=== PATIENT | male | born 1960 | race Caucasian/White ===

== ENCOUNTER 2017-11-02 16:37 | Emergency (ER) | payer OTHER ==
[~2017-11-02] VITALS: Ht 154.9 cm; Wt 100.0 kg
[2017-11-02] MEDS ORDERED: acetaminophen 325mg tablet PO ONE (20:00)
[2017-11-02] MEDS ORDERED: ketorolac trometh inj. 60 MG/2 ML VIAL IM ONE (20:00)
[2017-11-02] MEDS ORDERED: PER10325T PO (20:00)
[2017-11-02] MEDS ORDERED: ATOR20TA PO (20:01)
[2017-11-02] MEDS ORDERED: GLYB5TAB7 PO (20:01)
[2017-11-02] MEDS ORDERED: LISI-600 PO (20:01)
[2017-11-02 20:52] LABS: BASOPHILS % (AUTO) 0.2 % (0-1); EOSINOPHILS # (AUTO) 0.1 X10'3 (0-0.9); EOSINOPHILS % (AUTO) 1.4 % (0-6); HEMATOCRIT 44.4 % (42.0-52.0); HEMOGLOBIN 15.2 g/dl (14.0-17.9); LYMPHOCYTES # (AUTO) 2.4 X10'3 (1.1-4.8); LYMPHOCYTES % (AUTO) 21.9 % (21-51); MEAN CORPUSCULAR HEMOGLOBIN 29.6 PG (27.0-31.0); MEAN CORPUSCULAR HGB CONC 34.3 % (33.0-36.5); MEAN CORPUSCULAR VOLUME 86.2 FL (78-98); MEAN PLATELET VOLUME 7.5 FL (7.4-10.4); MONOCYTES # (AUTO) 0.7 X10'3 (0-0.9); MONOCYTES % (AUTO) 6.2 % (2-12); NEUTROPHILS # (AUTO) 7.6 X10'3 (1.8-7.7); NEUTROPHILS % (AUTO) 70.3 % (42-75); PLATELET COUNT 294 X10'3 (140-440); RED BLOOD COUNT 5.15 X10'6 (4.70-6.10); RED CELL DISTRIBUTION WIDTH 14.1 % (11.5-14.5); WHITE BLOOD COUNT 10.9 X10'3 (4.5-11.0)
[2017-11-02 21:16] LABS: ALANINE AMINOTRANSFERASE 43 U/L (12-78); ALBUMIN 4.1 G/DL (3.4-5.0); ALBUMIN/GLOBULIN RATIO 1.1 (1.1-1.5); ALKALINE PHOSPHATASE 84 IU/L (46-116); ANION GAP 13 (8-16); ASPARTATE AMINO TRANSFERASE 19 U/L (10-37); BILIRUBIN,TOTAL 0.6 MG/DL (0.1-1.0); BLOOD UREA NITROGEN 16 MG/DL (7-18); BUN/CREATININE RATIO 18.2 (5.4-32.0); CALCIUM 8.8 MG/DL (8.5-10.1); CHLORIDE 103 MMOL/L (99-107); CREATININE 0.88 MG/DL (0.60-1.10); GLUCOSE 209 MG/DL (70-104); POTASSIUM 4.2 MMOL/L (3.5-5.1); SODIUM 138 MMOL/L (135-145); TOTAL CARBON DIOXIDE 22.3 MMOL/L (24-32); TOTAL PROTEIN 7.8 G/DL (6.4-8.2); TROPONIN I < 0.04 NG/ML (0.0-0.05); eGFR 89 ML/MIN
[2017-11-02 21:41] VITALS: BP 167/77
== END 2017-11-02 21:43 | disposition home or self-care (01) ==
LOC: ER 16:37
DX: M54.89 Other dorsalgia (principal); M79.631 Pain in right forearm; G89.29 Other chronic pain; I10 Essential (primary) hypertension; Z79.899 Other long term (current) drug therapy; V89.2XXA Person injured in unspecified motor-vehicle accident, traffic, initial encounter; Y93.89 Activity, other specified; Y92.410 Unspecified street and highway as the place of occurrence of the external cause; Y99.8 Other external cause status
CPT/HCPCS: 36415; 70450; 71045; 80053; 84484; 85025; 93005; 96372; 99285; J1885

== ENCOUNTER 2023-05-04 14:25 | Inpatient (IN) | payer BC, OTHER ==
[2023-05-04] VITALS (10 sets, daily range): BP systolic 130–154; BP diastolic 49–132; PULSE 68–75; RESP 11–24; TEMP 98–98.4; O2SAT 94–98
[~2023-05-04] VITALS: Ht 170.2 cm; Wt 115.1 kg
[~2023-05-04 14:25] MED LIST: ATOR20TA PO; GLYB5TAB7 PO; LISI20TA28 PO; PER10325T PO
[2023-05-04 14:49] LABS: BASOPHILS # (AUTO) 0.2 X10'3 (0-0.2); BASOPHILS % (AUTO) 1.8 % (0-1); EOSINOPHILS # (AUTO) 0.3 X10'3 (0-0.9); EOSINOPHILS % (AUTO) 2.9 % (0-6); HEMATOCRIT 44.8 % (42.0-52.0); HEMOGLOBIN 14.7 g/dl (14.0-17.9); LYMPHOCYTES # (AUTO) 3.7 X10'3 (1.1-4.8); LYMPHOCYTES % (AUTO) 37.2 % (21-51); MEAN CORPUSCULAR HEMOGLOBIN 28.6 PG (27.0-31.0); MEAN CORPUSCULAR HGB CONC 32.8 g/dL (33.0-36.5); MEAN CORPUSCULAR VOLUME 87.2 FL (78-98); MEAN PLATELET VOLUME 8.2 FL (7.4-10.4); MONOCYTES # (AUTO) 0.6 X10'3 (0-0.9); MONOCYTES % (AUTO) 6.3 % (2-12); NEUTROPHILS # (AUTO) 5.2 X10'3 (1.8-7.7); NEUTROPHILS % (AUTO) 51.8 % (42-75); PLATELET COUNT 220 X10'3 (140-440); RED BLOOD COUNT 5.14 X10'6 (4.70-6.10); RED CELL DISTRIBUTION WIDTH 14.5 % (11.5-14.5); WHITE BLOOD COUNT 10.1 X10'3 (4.5-11.0)
[2023-05-04 15:03] LABS: ALANINE AMINOTRANSFERASE 160 U/L (12-78); ALBUMIN 3.5 G/DL (3.4-5.0); ALKALINE PHOSPHATASE 117 IU/L (46-116); ANION GAP 4 (8-16); ASPARTATE AMINO TRANSFERASE 63 U/L (10-37); BILIRUBIN,TOTAL 0.5 MG/DL (0.1-1.0); BLOOD UREA NITROGEN 26 MG/DL (7-18); BUN/CREATININE RATIO 27.1 (10.0-20.0); CHLORIDE 105 MMOL/L (99-107); CREATININE 0.96 MG/DL (0.60-1.10); GLUCOSE 102 MG/DL (70-104); POTASSIUM 3.7 MMOL/L (3.5-5.1); SODIUM 139 MMOL/L (135-145); TOTAL CARBON DIOXIDE 29.9 MMOL/L (24-32); TOTAL PROTEIN 7.1 G/DL (6.4-8.2); eCRCL 73 ML/MIN; eGFR 79 ML/MIN
[2023-05-04 15:10] LABS: PRO BRAIN NATRIURETIC PEPTIDE 439 PG/ML (0-125)
[2023-05-04] MEDS ORDERED: normal saline 1000ML IV soln IVB ONE (15:35)
--- NOTE | 2023-05-04 15:53 | NUR ---
Verified orders w/ REBEKAH Garces. Waiting on phone circuit operator and hospitalist.
--- NOTE | 2023-05-04 15:58 | NUR ---
DANCING TEACHER AT BEDSIDE
--- NOTE | 2023-05-04 16:00 | NUR ---
0730 LAST TIME PT ATE OR DRANK ANYTHING. NO BLOOD THINNERS.
[2023-05-04] MEDS ORDERED: LIDOcaine 1% W/epiNEPHrine 1:100,000 20ml vial ONE ×2 (16:16→18:40)
[2023-05-04] MEDS ORDERED: ceFAZolin 1000mg inj ONE (16:16)
[2023-05-04] MEDS ORDERED: midazolam 1 mg/ML 2ml injection ONE ×2 (16:17→18:42)
[2023-05-04] MEDS ORDERED: fentaNYL/PF 50MCG/1 ML 2ML syringe ONE (16:17)
[2023-05-04] MEDS ORDERED: PIOG30TA71 PO (16:29)
[2023-05-04] MEDS ORDERED: DAPA1TAB3 PO (16:29)
[2023-05-04] MEDS ORDERED: BUPR2TAB11 SL (16:30)
[2023-05-04] MEDS ORDERED: INSU100I8 SQ (16:32)
[2023-05-04] MEDS ORDERED: LISI1TAB51 PO (16:33)
[2023-05-04] MEDS ORDERED: LANTUS SQ (16:34)
[2023-05-04] MEDS ORDERED: CHOL20004 PO (16:35)
[2023-05-04] MEDS ORDERED: ASCO500C17 PO (16:35)
[2023-05-04] MEDS ORDERED: magnesium 4gm in 100ml NS 100 ML IV PRN (16:55)
[2023-05-04] MEDS ORDERED: acetaminophen 650mg rectal suppository RC PRN (16:55)
[2023-05-04] MEDS ORDERED: potassium Cl 40MEQ/1/2NS 520ml 520 ML IV PRN (16:55)
[2023-05-04] MEDS ORDERED: PERFLUTREN PROTEIN-A MICROSPHR (Optison) 0.22 MG/ML 3ML VIAL IV ONE (16:55)
[2023-05-04] MEDS ORDERED: diphenhydrAMINE 25mg capsule PO PRN (16:55)
[2023-05-04] MEDS ORDERED: magnesium Cl slow-release 64mg tablet PO PRN (16:55)
[2023-05-04] MEDS ORDERED: HYDROcodone/acetaminophen 5mg/325mg tablet PO PRN (16:55)
[2023-05-04] MEDS ORDERED: magnesium 2GM in 50ml NS 50 ML IV PRN (16:55)
[2023-05-04] MEDS ORDERED: potassium Cl 20 mEq SR tablet PO PRN ×2 (16:55)
[2023-05-04] MEDS ORDERED: mag hydrox/Alum hydrox/simeth 30ml oral suspension PO PRN (16:55)
[2023-05-04] MEDS ORDERED: acetaminophen 325mg tablet PO PRN ×2 (16:55)
[2023-05-04] MEDS ORDERED: magnesium hydroxide 30ml (MOM) UD suspension PO PRN (16:55)
[2023-05-04] MEDS ORDERED: bisacodyl 10mg suppository rectal RC PRN (16:55)
[2023-05-04] MEDS ORDERED: ondansetron/PF 4mg/2ml inj IV PRN (16:55)
[2023-05-04] MEDS: normal saline 1000ml 1,000 ML IV SCH (16:55)
[2023-05-04] MEDS ORDERED: insulin Lispro (HumaLOG) vial - multi-dose SQ SCH (18:20)
[2023-05-04] MEDS ORDERED: dextrose 50%-water 50ml dispensing syringe IV PRN ×2 (18:20)
[2023-05-04] MEDS ORDERED: DEXTROSE 15 GM of carb/4 tabs (each vial/BOTTLE has 4 tablets) PO PRN ×2 (18:20)
[2023-05-04] MEDS ORDERED: MESSAGE TO PHARMACY PO ONE (18:20)
[2023-05-04] MEDS ORDERED: glucagon, human recombinant 1mg kit SUBCUT PRN (18:20)
[2023-05-04] MEDS ORDERED: iohexol 350 MG/ML 50ML vial IV ONE (18:23)
[2023-05-04] MEDS: K and/or MAG REPLACEMENT MC SCH (20:00)
[2023-05-04] MEDS ORDERED: insulin glargine (Lantus) pen - multi-dose SQ SCH (21:00)
[2023-05-04] MEDS ORDERED: atorvastatin 20mg tablet PO SCH (21:00)
[2023-05-04] MEDS ORDERED: BUPRENORPHINE HCL 2 MG SL SCH (21:00)
[2023-05-04] MEDS: docusate sod 100mg capsule PO SCH (21:32)
[2023-05-04] MEDS: heparin, porcine 5000 units/ml vial SQ SCH (21:33)
[2023-05-04] MEDS ORDERED: vancomycin/NS 1 GM ADD-VANTAGE 250 ML X 1 DOSE IV ONE (22:00)
[2023-05-04] MEDS: HYDROcodone/acetaminophen 10/325mg tab PO PRN (22:13)
[2023-05-05] VITALS (7 sets, daily range): BP systolic 126–170; BP diastolic 47–76; PULSE 69–98; RESP 13–20; TEMP 97.8–98.3; O2SAT 93–98
[2023-05-05] MEDS: HYDROcodone/acetaminophen 10/325mg tab PO PRN ×2 (05:43→09:06)
[2023-05-05] MEDS: normal saline 1000ml 1,000 ML IV SCH (06:18)
--- NOTE | 2023-05-05 06:24 | NUR ---
Problems reprioritized. Patient report given, questions answered & plan of care reviewed with
[2023-05-05 06:25] LABS: BASOPHILS % (AUTO) 0.3 % (0-1); EOSINOPHILS # (AUTO) 0.2 X10'3 (0-0.9); EOSINOPHILS % (AUTO) 1.5 % (0-6); HEMATOCRIT 44.2 % (42.0-52.0); HEMOGLOBIN 14.5 g/dl (14.0-17.9); LYMPHOCYTES # (AUTO) 2.2 X10'3 (1.1-4.8); LYMPHOCYTES % (AUTO) 21.4 % (21-51); MEAN CORPUSCULAR HEMOGLOBIN 28.8 PG (27.0-31.0); MEAN CORPUSCULAR HGB CONC 32.8 g/dL (33.0-36.5); MEAN CORPUSCULAR VOLUME 87.8 FL (78-98); MEAN PLATELET VOLUME 8.2 FL (7.4-10.4); MONOCYTES # (AUTO) 0.7 X10'3 (0-0.9); MONOCYTES % (AUTO) 7.1 % (2-12); NEUTROPHILS % (AUTO) 69.7 % (42-75); PLATELET COUNT 211 X10'3 (140-440); RED BLOOD COUNT 5.03 X10'6 (4.70-6.10); RED CELL DISTRIBUTION WIDTH 14.1 % (11.5-14.5); WHITE BLOOD COUNT 10.1 X10'3 (4.5-11.0)
--- NOTE | 2023-05-05 06:34 | NUR ---
Patient in room PCU 3011. I have received report from [place] and had the opportunity to ask questions and assume patient care.
[2023-05-05 06:45] LABS: ALANINE AMINOTRANSFERASE 120 U/L (12-78); ALBUMIN 3.3 G/DL (3.4-5.0); ALKALINE PHOSPHATASE 96 IU/L (46-116); ANION GAP 3 (8-16); ASPARTATE AMINO TRANSFERASE 36 U/L (10-37); BILIRUBIN,TOTAL 0.8 MG/DL (0.1-1.0); BLOOD UREA NITROGEN 18 MG/DL (7-18); CALCIUM 8.7 MG/DL (8.5-10.1); CHLORIDE 106 MMOL/L (99-107); CHOL/HDL RATIO 2.9 (0.00-4.99); CHOLESTEROL 145 MG/DL (0-200); CREATININE 0.75 MG/DL (0.60-1.10); GLUCOSE 93 MG/DL (70-104); HDL CHOLESTEROL 50 MG/DL (35-60); LDL CHOLESTEROL 76 MG/DL (50-100); MAGNESIUM 1.8 MG/DL (1.5-2.4); PHOSPHORUS 3.5 MG/DL (2.3-4.5); POTASSIUM 3.8 MMOL/L (3.5-5.1); SODIUM 138 MMOL/L (135-145); THYROID STIMULATING HORMONE 0.68 ulU/ml (0.34-4.50); TOTAL CARBON DIOXIDE 28.7 MMOL/L (24-32); TOTAL PROTEIN 6.7 G/DL (6.4-8.2); TRIGLYCERIDES 100 MG/DL (20-135); eCRCL 93 ML/MIN; eGFR > 90 ML/MIN
[2023-05-05] MEDS ORDERED: lisinopril 20mg tablet PO SCH (08:00)
[2023-05-05] MEDS ORDERED: HYDROchlorothiazide 25mg tablet PO SCH (08:00)
[2023-05-05] MEDS: K and/or MAG REPLACEMENT MC SCH (08:47)
[2023-05-05] MEDS: docusate sod 100mg capsule PO SCH (09:06)
[2023-05-05] MEDS: heparin, porcine 5000 units/ml vial SQ SCH (09:07)
[2023-05-05] MEDS ORDERED: FLU VACC QS2023-24(6MOS UP)/PF 60 MCG/0.5 ML SYRINGE IM ONE (10:00)
[2023-05-05] MEDS ORDERED: LISI20TA28 PO (11:01)
--- NOTE | 2023-05-05 12:15 | NUR ---
ORDERS FOR STAT CHEST XRAY PUT IN PER DR. ROCHE.
--- NOTE | 2023-05-05 12:27 | NUR ---
Diabetes consult: Pt presents with an A1c >12% this admit per EMR. Pt seen at bedside for verbal/ written diabetes nutrition education. Pt states he sees his provider of whom is an NURSING EXECUTIVE about every 2 months for diabetes management and is trying to bring his A1c down since it's been around 11.9% . Pt states he takes his medication as prescribed and checks his BG every day which is typically >200mg/dl. Pt states his girlfriend prepares most his meals so will pass on the diabetes nutrition handouts to his girlfriend. RD contact also provided and encouraged pt to reach out for any nutrition questions or concerns. Addendum: 05/05/23 at [address] Amended: Links added.
--- NOTE | 2023-05-05 16:00 | NUR ---
Discharged with belonging and instructions for follow up care. Pacemaker site is dressed and Pt. is using sting as directed. Pt. will make an appointment with Dr. Maxwell for stable removal/wound care in 1 week. Instructions are well understood. Stable for discharge. Steady ambulation. is driving Pt. home.
== END 2023-05-05 15:03 | disposition home or self-care (01) | DRG 244 ==
LOC: ER 14:27 → ED HOLD 17:07 → PCU 3S 20:20
PROVIDERS: ADMIT Family Medicine; ATTEND Family Medicine
PROC: 0JH606Z Insertion of Pacemaker, Dual Chamber into Chest Subcutaneous Tissue and Fascia, Open Approach (ICD-10-PCS; principal; 2023-05-04)
PROC: 02H63JZ Insertion of Pacemaker Lead into Right Atrium, Percutaneous Approach (ICD-10-PCS; 2023-05-04)
PROC: 02HK3JZ Insertion of Pacemaker Lead into Right Ventricle, Percutaneous Approach (ICD-10-PCS; 2023-05-04)
PROC: B31J1ZZ Fluoroscopy of Left Upper Extremity Arteries using Low Osmolar Contrast (ICD-10-PCS; 2023-05-04)
DX: I44.2 Atrioventricular block, complete (principal); E11.9 Type 2 diabetes mellitus without complications; E66.9 Obesity, unspecified; E78.5 Hyperlipidemia, unspecified; I50.9 Heart failure, unspecified; I11.0 Hypertensive heart disease with heart failure; Z63.4 Disappearance and death of family member; Z82.49 Family history of ischemic heart disease and other diseases of the circulatory system; Z83.6 Family history of other diseases of the respiratory system; Z68.39 Body mass index [BMI] 39.0-39.9, adult
CPT/HCPCS: 33208; 36415; 71045; 80053; 80061; 82948; 83036; 83735; 83880; 84100; 84443; 84484; 85025; 87081; 93005; 93308; 99152; 99153; 99285; A4565; A6449; C1785; C1898; G0378; J0690; J1644; J1815; J2250; J3010; J3370; J3490; J7030; J7040; Q9967